=== PATIENT | male | born 1955 | race Caucasian/White ===

== ENCOUNTER 2020-05-12 20:49 | Inpatient (IN) | payer SELFPAY ==
[~2020-05-12] VITALS: Ht 170 cm; Wt 72.0 kg
[~2020-05-12 20:49] MED LIST: CHOL4PAC PO; CHONDROITIN PO; CITA20TA4 PO; GLUC100016 PO; GLUC500C2 PO; MULTI VITAMIN PO
[2020-05-12 21:09] LABS: BASOPHILS % (AUTO) 0 % (0-10); EOSINOPHILS # (AUTO) 0.2 10^3/uL (0.0-0.3); EOSINOPHILS % (AUTO) 2 % (0-10); HEMATOCRIT 45 % (40-54); HEMOGLOBIN 15.5 G/DL (13.3-17.7); LYMPHOCYTES # (AUTO) 1.5 X 10^3 (1.0-4.0); LYMPHOCYTES % (AUTO) 10 % (12-44); MEAN CORPUSCULAR HEMOGLOBIN 30 PG (25-34); MEAN CORPUSCULAR HGB CONC 35 G/DL (32-36); MEAN CORPUSCULAR VOLUME 87 FL (80-99); MEAN PLATELET VOLUME 10.4 FL (7.4-10.4); MONOCYTES # (AUTO) 0.8 X 10^3 (0.0-1.0); MONOCYTES % (AUTO) 5 % (0-12); NEUTROPHILS # (AUTO) 11.9 X 10^3 (1.8-7.8); NEUTROPHILS % (AUTO) 83 % (42-75); PLATELET COUNT 198 10^3/uL (130-400); RED CELL DISTRIBUTION WIDTH 13.5 % (10.0-14.5); WHITE BLOOD COUNT 14.4 10^3/uL (4.3-11.0)
[2020-05-12 21:28] LABS: ALBUMIN 4.4 GM/DL (3.2-4.5); CHLORIDE 105 MMOL/L (98-107); POTASSIUM 3.8 MMOL/L (3.6-5.0); SODIUM 140 MMOL/L (135-145)
[2020-05-12 21:29] LABS: CALCIUM 9.3 MG/DL (8.5-10.1)
[2020-05-12] MEDS ORDERED: FAMOTIDINE 20MG/2ML IV (PEPCID) IVP ONE (21:30)
[2020-05-12] MEDS ORDERED: fentaNYL INJECTION 100 MCG/2 ML AMP IVP ONE ×2 (21:30→23:45)
[2020-05-12] MEDS ORDERED: ONDANSETRON 4 MG/2 ML (SDV) Z0FRAN IVP ONE (21:30)
[2020-05-12 21:31] LABS: GLUCOSE 124 MG/DL (70-105); TOTAL PROTEIN 7.4 GM/DL (6.4-8.2)
[2020-05-12 21:32] LABS: BILIRUBIN,TOTAL 0.7 MG/DL (0.1-1.0); CARBON DIOXIDE 24 MMOL/L (21-32)
[2020-05-12 21:34] LABS: ALKALINE PHOSPHATASE 91 U/L (40-136); GFR ESTIMATED > 60
[2020-05-12 21:35] LABS: BUN/CREATININE RATIO 10
[2020-05-12 21:37] LABS: ALANINE AMINOTRANSFERASE 24 U/L (0-55)
[2020-05-12] MEDS ORDERED: LACTATED RINGERS 1,000 ML IV ONE (21:50)
[2020-05-12 21:53] LABS: LIPASE 76 U/L (8-78)
[2020-05-12] MEDS ORDERED: NS 100 ML (IVPB) BAG IV ONE (22:00)
[2020-05-12] MEDS ORDERED: IOHEXOL 350 MG/ML 100 ML (OMNIPAQUE 350) VIAL IV ONE (22:00)
[2020-05-12] MEDS ORDERED: HOLD METFORMIN - RECEIVED CONTRAST 20 ML VIAL IV SCH (22:00)
[2020-05-12 22:01] LABS: EOSINOPHILS % (MANUAL) 2 %; LYMPHOCYTES % (MANUAL) 14 %; MONOCYTES % (MANUAL) 5 %; NEUTROPHILS % (MANUAL) 79 %
[2020-05-12 22:02] LABS: RBC MORPH NORMAL
--- NOTE | 2020-05-12 23:00 | ED Abdominal Pain ---
General Chief Complaint: Abdominal/GI Problems Stated Complaint: ABD PAIN/VOMITING Nursing Triage Note: PATIENT STATES AFTER EATING DINNER FELT BLOATED AND THEN IMMEDIATLY VOMITTED PATIENT COMPLAINT OF ABDOMIANAL PAIN. Sepsis Screen: No Definite Risk Source of Information: Patient Exam Limitations: No Limitations History of Present Illness Date Seen by Provider: May 12, 2020 Time Seen by Provider: 20:54 Initial Comments This 65-year-old gentleman presents to the emergency room with complaints of bloating and vomiting tonight with central abdominal pain that radiates to the right lower quadrant. He denies any fever. He is moaning in distress. He has occasional trouble with constipation but reports 3 bowel movements today. Allergies and Home Medications Allergies Coded Allergies: No Known Drug Allergies (Unverified , 03/10/12) Home Medications Cholestyramine/Aspartame 4 G/Pkt Packet, 4 G PO DAILY, (Reported) Citalopram Hydrobromide 20 Mg Tablet, 20 MG PO DAILY, (Reported) Glucosamine Sulfate 500 Mg Capsule, 500 MG PO DAILY, (Reported) Glucosamine Sulfate 2KCL 1,000 Mg Tablet, 1,000 MG PO DAILY, (Reported) [Chondroitin] , 1,200 MG PO DAILY, (Reported) [Multi Vitamin] , 1 PO DAILY, (Reported) Patient Home Medication List Home Medication List Reviewed: Yes Review of Systems Review of Systems Constitutional: no symptoms reported EENTM: No Symptoms Reported Respiratory: No Symptoms Reported Cardiovascular: No Symptoms Reported Gastrointestinal: See HPI Genitourinary: No Symptoms Reported Musculoskeletal: no symptoms reported Skin: no symptoms reported Psychiatric/Neurological: No Symptoms Reported Endocrine: No Symptoms Reported Hematologic/Lymphatic: No Symptoms Reported Past Ygdrxix-Djxwhk-Sojtcc Hx Past Med/Social Hx: Reviewed Nursing Past Med/Soc Hx Patient Social History Alcohol Use: Occasionally Uses Recreational Drug Use: Yes Drug of Choice: MARIJUANA DAILY Smoking Status: Former Smoker Former Smoker, Quit: Nov 22, 2019 2nd Hand Smoke Exposure: Yes Recent Foreign Travel: No Contact w/Someone Who Travel: No Recent Infectious Disease Expo: No Physical Abuse: No Sexual Abuse: No Mistreated: No Fear: No Immunizations Up To Date Tetanus Booster (TDap): Unknown Seasonal Allergies Seasonal Allergies: No Past Medical History Surgeries: Yes Gallbladder Respiratory: No Cardiac: No Gastrointestinal: No Musculoskeletal: No (BUT HAS JOINT PAIN) Endocrine: No Cancer: No Psychosocial: No Physical Exam Vital Signs Vital Signs - First Documented 6/21/20 21:00 Temp 36.5 Pulse 72 Resp 18 B/P (MAP) 167/97 (120) Pulse Ox 95 O2 Delivery Room Air Capillary Refill : Less Than 3 Seconds Height/Weight/BMI Height: '" Weight: lbs. oz. 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, no motor/sensory deficits, alert, normal mood/affect, oriented x 3 Skin: normal color, warm/dry Progress/Results/Core Measures Results/Orders Lab Results Laboratory Tests Test 05/12/20 21:00 05/12/20 23:10 Range/Units White Blood Count 14.4 H 4.3-11.0 10^3/uL Red Blood Count 5.16 4.35-5.85 10^6/uL Hemoglobin 15.5 13.3-17.7 G/DL Hematocrit 45 40-54 % Mean Corpuscular Volume 87 80-99 FL Mean Corpuscular Hemoglobin 30 25-34 PG Mean Corpuscular Hemoglobin Concent 35 32-36 G/DL Red Cell Distribution Width 13.5 10.0-14.5 % Platelet Count 198 130-400 10^3/uL Mean Platelet Volume 10.4 7.4-10.4 FL Neutrophils (%) (Auto) 83 H 42-75 % Lymphocytes (%) (Auto) 10 L 12-44 % Monocytes (%) (Auto) 5 0-12 % Eosinophils (%) (Auto) 2 0-10 % Basophils (%) (Auto) 0 0-10 % Neutrophils # (Auto) 11.9 H 1.8-7.8 X 10^3 Lymphocytes # (Auto) 1.5 1.0-4.0 X 10^3 Monocytes # (Auto) 0.8 0.0-1.0 X 10^3 Eosinophils # (Auto) 0.2 0.0-0.3 10^3/uL Basophils # (Auto) 0.0 0.0-0.1 10^3/uL Neutrophils % (Manual) 79 % Lymphocytes % (Manual) 14 % Monocytes % (Manual) 5 % Eosinophils % (Manual) 2 % Blood Morphology Comment NORMAL Sodium Level 140 135-145 MMOL/L Potassium Level 3.8 3.6-5.0 MMOL/L Chloride Level 105 98-107 MMOL/L Carbon Dioxide Level 24 21-32 MMOL/L Anion Gap 11 5-14 MMOL/L Blood Urea Nitrogen 12 7-18 MG/DL Creatinine 1.20 0.60-1.30 MG/DL Estimat Glomerular Filtration Rate > 60 BUN/Creatinine Ratio 10 Glucose Level 124 H 70-105 MG/DL Calcium Level 9.3 8.5-10.1 MG/DL Corrected Calcium 9.0 8.5-10.1 MG/DL Total Bilirubin 0.7 0.1-1.0 MG/DL Aspartate Amino Transf (AST/SGOT) 23 5-34 U/L Alanine Aminotransferase (ALT/SGPT) 24 0-55 U/L Alkaline Phosphatase 91 40-136 U/L C-Reactive Protein High Sensitivity 0.29 0.00-0.50 MG/DL Total Protein 7.4 6.4-8.2 GM/DL Albumin 4.4 3.2-4.5 GM/DL Lipase 76 8-78 U/L Urine Color YELLOW Urine Clarity CLEAR Urine pH 6.0 5-9 Urine Specific [place] 1.015 L 1.016-1.022 Urine Protein TRACE H NEGATIVE Urine Glucose (UA) NEGATIVE NEGATIVE Urine Ketones NEGATIVE NEGATIVE Urine Nitrite NEGATIVE NEGATIVE Urine Bilirubin NEGATIVE NEGATIVE Urine Urobilinogen 0.2 < = 1.0 MG/DL Urine Leukocyte Esterase NEGATIVE NEGATIVE Urine RBC (Auto) NEGATIVE NEGATIVE Urine RBC NONE /HPF Urine WBC NONE /HPF Urine Squamous Epithelial Cells RARE /HPF Urine Crystals NONE /LPF Urine Bacteria NEGATIVE /HPF Urine Casts PRESENT /LPF Urine Hyaline Casts RARE /LPF Urine Mucus NEGATIVE /LPF Urine Culture Indicated NO My Orders Orders - JOSE CASTAÑEDA MD Ed Iv/Invasive Line Start (05/12/20 20:54) Cbc With Automated Diff (05/12/20 20:54) Comprehensive Metabolic Panel (05/12/20 20:54) Hs C Reactive Protein (05/12/20 20:54) Lipase (05/12/20 20:54) Ua Culture If Indicated (05/12/20 20:54) Manual Differential (05/12/20 21:00) Ondansetron Injection (Zofran Injectio (05/12/20 21:30) Fentanyl Injection (Sublimaze Injection (05/12/20 21:30) Famotidine Injection (Pepcid Injection) (05/12/20 21:30) Ct Abdomen/Pelvis W (05/12/20 21:50) Lactated Ringers (Lr 1000 Ml Iv Solution (05/12/20 21:50) Iohexol Injection (Omnipaque 350 Mg/Ml 1 (05/12/20 22:00) Received Contrast (Hold Metformin- Contr (05/12/20 22:00) Ns (Ivpb) (Sodium Chloride 0.9% Ivpb Bag (05/12/20 22:00) Fentanyl Injection (Sublimaze Injection (05/12/20 23:45) Medications Given in ED Current Medications Medications Dose Ordered Sig/Lc Route Start Time Stop Time Status Last Admin Dose Admin Famotidine 20 mg ONCE ONCE IVP 05/12/20 21:30 05/12/20 21:31 DC 05/12/20 21:35 20 MG Fentanyl Citrate 50 mcg ONCE ONCE IVP 05/12/20 21:30 05/12/20 21:31 DC 05/12/20 21:35 50 MCG Iohexol 100 ml ONCE ONCE IV 05/12/20 22:00 05/12/20 22:01 DC 05/12/20 22:30 85 ML Lactated Ringer's 1,000 ml @ 0 mls/hr Q0M ONCE IV 05/12/20 21:50 05/12/20 21:51 DC 05/12/20 21:53 0 MLS/HR Ondansetron HCl 8 mg ONCE ONCE IVP 05/12/20 21:30 05/12/20 21:31 DC 05/12/20 21:36 8 MG Sodium Chloride 100 ml ONCE ONCE IV 05/12/20 22:00 05/12/20 22:01 DC 05/12/20 22:30 80 ML Vital Signs/I&O 05/12/20 21:00 Temp 36.5 Pulse 72 Resp 18 B/P (MAP) 167/97 (120) Pulse Ox 95 O2 Delivery Room Air Blood Pressure Mean: 120 Progress Progress Note : Progress Note Patient was seen and evaluated. He was treated with IV fluids, fentanyl, Zofran, and Pepcid. Labs were reviewed and were unremarkable except for leukocytosis. CT was then obtained revealing a phlegmonous pancreas. However, this did not correlate with either his CRP or lipase. Patient's clinical presentation and CT findings warrant observation. Patient is agreeable to stay for observation. Fentanyl dose was repeated. Diagnostic Imaging Diagonstic Imaging: CT Plain Films/CT/US/NM/MRI: abdomen, pelvis Comments CT abdomen and pelvis viewed by me and [facility] report reviewed. There were inflammatory changes around the pancreas suggestive of phlegmonous pancreas. Departure Communication (Admissions) Time/Spoke to Admitting Phy: 23:20 Dr. Mancera Impression Primary Impression: Abdominal pain Qualified Codes: R10.33 - Periumbilical pain Additional Impression: Nausea and vomiting Qualified Codes: R11.2 - Nausea with vomiting, unspecified Disposition: ADMITTED INPATIENT Condition: Improved Admissions Decision to Admit Reason: Admit from ER (General) Decision to Admit/Date: May 13, 2020 Time/Decision to Admit Time: 23:20 Departure-Patient Inst. Referrals: NICOLE MOSER MD (PCP/Family) Primary Care Physician JOSE CASTAÑEDA MD May 12, 2020 23:00
[2020-05-12 23:18] LABS: BILIRUBIN,URINE NEGATIVE (NEGATIVE); CLARITY,URINE CLEAR; COLOR,URINE YELLOW; GLUCOSE, URINE (UA) NEGATIVE (NEGATIVE); KETONES,URINE NEGATIVE (NEGATIVE); LEUKOCYTE ESTERASE ,URINE NEGATIVE (NEGATIVE); NITRITE,URINE NEGATIVE (NEGATIVE); PROTEIN,URINE TRACE (NEGATIVE)
[2020-05-12 23:27] LABS: BACTERIA,URINE NEGATIVE /HPF; HYALINE CASTS, URINE RARE /LPF; SQUAMOUS EPITHELIAL CELL,UR RARE /HPF
--- OUTSIDE RECORDS SUMMARY | 2020-05-12 23:59 | XMS REPORT | Continuity of Care Document ---
Demographics Preferred Language Unknown Marital Status Unknown Caodaism Affiliation Unknown Race Unknown Ethnic Group Unknown Author Organization Unknown Address Unknown Phone Unavailable Allergies There is no data. Medications There is no data. Problems There is no data. Procedures There is no data. Results Test Result Range Complete blood count (CBC) with automate d white blood cell (WBC) differential - 05/12/20 21:00 Blood leukocytes automated count (number/volume) 14.4 10*3/uL 4.3-11.0 Blood erythrocytes automated count (number/volume) 5.16 10*6/uL 4.35-5.85 Venous blood hemoglobin measurement (mass/volume) 15.5 g/dL 13.3-17.7 Blood hematocrit (volume fraction) 45 % 40-54 Automated erythrocyte mean corpuscular volume 87 [ foz_us] 80-99 Automated erythrocyte mean corpuscular h emoglobin (mass per erythrocyte) 30 pg 25-34 Automated erythrocyte mean corpuscular h emoglobin concentration measurement (mass/volume) 35 g/dL 32-36 Automated erythrocyte distribution width ratio 13. 5 % 10.0- 14.5 Automated blood platelet count (count/volume) 198 10*3/uL 130-400 Automated blood platelet mean volume measurement 10.4 [foz_us] 7.4-10.4 Automated blood neutrophils/100 leukocytes 83 % 42-75 Automated blood lymphocytes/100 leukocytes 10 % 12-44 Blood monocytes/100 leukocytes 5 % 0-12 Automated blood eosinophils/100 leukocytes 2 % 0-10 Automated blood basophils/100 leukocytes 0 % 0-10 Blood neutrophils automated count (number/volume) 11.9 10*3 1.8-7.8 Blood lymphocytes automated count (number/volume) 1.5 10*3 1.0-4.0 Blood monocytes automated count (number/volume) 0. 8 10*3 0.0-1.0 Automated eosinophil count 0.2 10*3/uL 0 .0-0.3 Automated blood basophil count (count/volume) 0.0 10*3/uL 0.0-0.1 Comprehensive metabolic panel - 05/12/20 21:00 Serum or plasma sodium measurement (moles/volume) 140 mmol/L 135-145 Serum or plasma potassium measurement (moles/volume) 3.8 mmol/L 3.6-5.0 Serum or plasma chloride measurement (moles/volume) 105 mmol/L 98-107 Carbon dioxide 24 mmol/L 21-32 Serum or plasma anion gap determination (moles/volume) 11 mmol/L 5-14 Serum or plasma urea nitrogen measurement (mass/volume ) 12 mg/dL 7-18 Serum or plasma creatinine measurement (mass/volume) 1.20 mg/dL 0.60-1.30 Serum or plasma urea nitrogen/creatinine mass ratio 10 NRG Serum or plasma creatinine measurement w ith calculation of estimated glomerular filtration rate > NRG Serum or plasma glucose measurement (mass/volume) 124 mg/dL 70-105 Serum or plasma calcium measurement (mass/volume) 9.3 mg/dL 8.5-10.1 Serum or plasma total bilirubin measurement (mass/volu me) 0.7 mg/dL 0.1-1.0 Serum or plasma alkaline phosphatase jim surement (enzymatic activity/volume) 91 U/L 40-136 Serum or plasma aspartate aminotransfera se measurement (enzymatic activity/volume) 23 U/L 5-34 Serum or plasma alanine aminotransferase measurement (enzymatic activity/volume) 24 U/L 0-55 Serum or plasma protein measurement (mass/volume) 7.4 g/dL 6.4-8.2 Serum or plasma albumin measurement (mass/volume) 4.4 g/dL 3.2-4.5 CALCIUM CORRECTED 9.0 mg/dL 8.5-10.1 Lipase - 05/12/20 21:00 Lipase 76 U/L 8-78 Serum or plasma C reactive protein measu rement (mass/volume) - 05/12/20 21:00 Serum or plasma C reactive protein measurement (mass/v olume) 0.29 mg/dL 0.00-0.50 Manual absolute plasma cell count - 04/23 12/11 21:00 Blood monocytes/100 leukocytes 5 % NRG Manual blood segmented neutrophils/100 leukocytes 79 % NRG Manual blood lymphocytes/100 leukocytes 14 % NRG Manual eosinophils/100 leukocytes in nose 2 % NRG Blood erythrocyte morphology finding identification NORMAL NRG Complete urinalysis with reflex to cultu re - 05/12/20 23:10 Urine color determination YELLOW NRG Urine clarity determination CLEAR NR G Urine pH measurement by test strip 6.0 5-9 Specific gravity of urine by test strip 1.015 1.016-1.022 Urine protein assay by test strip, semi-quantitative TRACE NEGATIVE Urine glucose detection by automated test strip NE GATIVE NEGATIVE Erythrocytes detection in urine sediment by light micr oscopy NEGATIVE NEGATIVE Urine ketones detection by automated test strip NE GATIVE NEGATIVE Urine nitrite detection by test strip NEGATIVE NEGATIVE Urine total bilirubin detection by test strip NEGA TIVE NEGATIVE Urine urobilinogen measurement by automated test strip (mass/volume) 0.2 mg/dL < = 1.0 Urine leukocyte esterase detection by dipstick NEG ATIVE NEGATIVE Automated urine sediment erythrocyte cou nt by microscopy (number/high power field) NONE NRG Automated urine sediment leukocyte count by microscopy (number/high power field) NONE NRG Bacteria detection in urine sediment by light microsco py NEGATIVE NRG Squamous epithelial cells detection in u rine sediment by light microscopy RARE NRG Crystals detection in urine sediment by light microsco py NONE NRG Casts detection in urine sediment by light microscopy PRESENT NRG Mucus detection in urine sediment by light microscopy NEGATIVE NRG Complete urinalysis with reflex to culture NO NRG Hyaline casts detection in urine sediment by light carl roscopy RARE NRG Encounters ACCT No. Visit Date/Time Discharge Status Pt. Type Provider Facility Loc./Unit Complaint [id number] 05/12/2020 21:14:00 Document Registration
[2020-05-13] VITALS (8 sets, daily range): BP systolic 129–162; BP diastolic 62–91
--- NOTE | 2020-05-13 00:52 | NUR ---
Joann Uribe admitted to room 410-1, with an admitting diagnosis of N/V, ABDOMINAL PAIN, LEUKOCYTOSIS , on 05/12/20 from ED via WHEELCHAIR , accompanied by STAFF.JOANN URIBE introduced to surroundings, call light, bed controls, phone, TV, temperature control, lights, meal times, smoking policy, visitor policy, side rail policy, bathrooms and showers. Patient Rights given to patient in the handbook.JOANN URIBE verbalizes understanding that [facility] is not responsible for the loss or damage to any personal effects or valuables that are kept in the patients posession during their hospitalization. JOANN URIBE verbalizes understanding of Interdisciplinary Patient Education. Patient and/or family were informed about the Rapid Response Team and its purpose.
[2020-05-13] MEDS: LACTATED RINGERS 1,000 ML IV SCH ×3 (02:14→18:30)
[2020-05-13] MEDS: fentaNYL INJECTION 100 MCG/2 ML AMP IV PRN ×8 (02:14→21:28)
[2020-05-13 05:23] LABS: BASOPHILS % (AUTO) 0 % (0-10); EOSINOPHILS % (AUTO) 0 % (0-10); HEMATOCRIT 42 % (40-54); HEMOGLOBIN 14.5 G/DL (13.3-17.7); LYMPHOCYTES # (AUTO) 0.6 X 10^3 (1.0-4.0); LYMPHOCYTES % (AUTO) 5 % (12-44); MEAN CORPUSCULAR HEMOGLOBIN 30 PG (25-34); MEAN CORPUSCULAR HGB CONC 35 G/DL (32-36); MEAN CORPUSCULAR VOLUME 87 FL (80-99); MEAN PLATELET VOLUME 10.6 FL (7.4-10.4); MONOCYTES # (AUTO) 0.5 X 10^3 (0.0-1.0); MONOCYTES % (AUTO) 4 % (0-12); NEUTROPHILS # (AUTO) 11.9 X 10^3 (1.8-7.8); NEUTROPHILS % (AUTO) 92 % (42-75); PLATELET COUNT 169 10^3/uL (130-400); RED CELL DISTRIBUTION WIDTH 13.4 % (10.0-14.5)
[2020-05-13 05:33] LABS: ALBUMIN 3.8 GM/DL (3.2-4.5); CHLORIDE 106 MMOL/L (98-107); POTASSIUM 4.2 MMOL/L (3.6-5.0); SODIUM 139 MMOL/L (135-145)
[2020-05-13 05:34] LABS: CALCIUM 8.6 MG/DL (8.5-10.1)
[2020-05-13 05:35] LABS: GLUCOSE 127 MG/DL (70-105); TOTAL PROTEIN 6.5 GM/DL (6.4-8.2)
[2020-05-13 05:36] LABS: CARBON DIOXIDE 23 MMOL/L (21-32)
[2020-05-13 05:37] LABS: BILIRUBIN,TOTAL 0.7 MG/DL (0.1-1.0)
[2020-05-13 05:38] LABS: ALKALINE PHOSPHATASE 80 U/L (40-136)
[2020-05-13 05:39] LABS: CREATININE SERUM 1.03 MG/DL (0.60-1.30); GFR ESTIMATED > 60
[2020-05-13 05:40] LABS: BUN/CREATININE RATIO 13
[2020-05-13 05:42] LABS: ALANINE AMINOTRANSFERASE 21 U/L (0-55)
[2020-05-13 06:54] LABS: LIPASE 1148 U/L (8-78)
--- NOTE | 2020-05-13 07:23 | Diagnostic Imaging Report ---
PROCEDURE: CT abdomen and pelvis with contrast. TECHNIQUE: Multiple contiguous axial images were obtained through the abdomen and pelvis after administration of intravenous contrast. Auto Exposure Controls were utilized during the CT exam to meet ALARA standards for radiation dose reduction. INDICATION: Abdominal pain and vomiting. COMPARISON: None available. FINDINGS: Emphysematous changes are demonstrated in both lung bases. Mild scarring and fibrotic changes are also demonstrated in the lung bases. The visualized heart is normal in size. Incidental note is made of a cyst in the posterior right hepatic lobe superiorly. The liver is otherwise unremarkable. The gallbladder is surgically absent. There is mild prominence of the common bile duct, physiologic postcholecystectomy. The spleen and adrenal glands are unremarkable. There is marked peripancreatic inflammatory change. There is no pancreatic ductal dilatation. No focal peripancreatic collection is demonstrated. Surrounding fluid related to the pancreas, extends inferiorly along the paracolic gutters and Gerota's fascia. No focal/organized or rim-enhancing collection is demonstrated. The kidneys are symmetric in size and demonstrate normal enhancement, without renal calculus, hydronephrosis, or suspicious mass. There is no abnormality in the visualized ureters. There is a small hiatal hernia. There is mild inflammatory change involving the 2nd portion of the duodenum, likely reactive in nature to the pancreatic process. Otherwise, no bowel wall thickening is demonstrated. There is no evidence of obstruction. There is marked colonic diverticulosis, without evidence of diverticulitis. There is no pneumoperitoneum. No lymphadenopathy is demonstrated. The bladder and prostate gland are unremarkable. There is moderate calcified and noncalcified atherosclerotic plaque involving the abdominal aorta, without aneurysmal dilatation. There is no evidence of venous thrombosis. The abdominal wall is unremarkable. Degenerative changes involve the spine. Incidental note is made of bilateral pars interarticularis defect of the L5 vertebral body, with associated grade 1 spondylolisthesis of L5 on S1. No acute osseous abnormality is identified. IMPRESSION: Acute pancreatitis, as detailed above. There is associated inflammatory change and fluid, without focal collection or findings to suggest pancreatic necrosis. There is also associated mild inflammatory change involving the 2nd portion the duodenum, which is presumably reactive in nature. Chronic and incidental findings are detailed above. Findings are in agreement with initial teleradiology report. Dictated by: Dictated on workstation # [id number]
[2020-05-13] MEDS: ONDANSETRON 4 MG/2 ML (SDV) Z0FRAN IV PRN ×2 (08:41→13:23)
[2020-05-13] MEDS: FAMOTIDINE 20MG/2ML IV (PEPCID) IV SCH ×2 (09:07→21:28)
[2020-05-13 09:11] LABS: TRIGLYCERIDES 102 MG/DL (<150); VLDL CHOLESTEROL 20 MG/DL (5-40)
[2020-05-13 09:16] LABS: CHOLESTEROL 195 MG/DL (< 200); HDL CHOLESTEROL 33 MG/DL (40-60)
[2020-05-13] MEDS ORDERED: NAPR220T66 PO (09:30)
--- NOTE | 2020-05-13 09:44 | NUR ---
SPOKE WITH PT TO COMPLETE THE MED REC PT DENIES TAKING ANY PRESCRIPTION MEDICATION OTC MEDS: DIEGO BERUMEN
--- NOTE | 2020-05-13 10:46 | History & Physical-Hospitalist ---
History of Present Illness HPI/Chief Complaint Natanael Uribe is a 65-year-old male with no known past medical history who presented with abdominal pain. He reports that the pain started yesterday and is worse in the epigastric region. Pain the radiates throughout his abdomen. He reports subjective fevers and chills. He also reports diaphoresis. He reports nausea. He denies any chest pain. He denies any trouble breathing or cough. He denies any vomiting. He has had some diarrhea. He denies any dysuria. He denies any rash. He is a nonsmoker. He drinks alcohol occasionally and only a very small amount. He does smoke marijuana. He denies any recent abdominal trauma. He had his gallbladder removed almost 20 years ago. He says he had a similar episode with pain in his lower abdomen a couple months ago which lasted about 2 weeks. He did not seek medical attention at that time. Source: patient Exam Limitations: no limitations Date Seen 05/13/20 Time Seen by a Provider: 08:45 Attending Physician Lillian Mancera MD PCP Xiang Najera MD Referring Physician Date of Admission May 12, 2020 at 23:42 Home Medications & Allergies Home Medications Reviewed patient Home Medication Reconciliation performed by pharmacy medication reconciliations accounts payable technician and/or nursing. Patients Allergies have been reviewed. Allergies Allergies Coded Allergies No Known Drug Allergies (Unverified03/10/12) Past Pjknfko-Jfbrbi-Eqmiua Hx Past Med/Social Hx: Reviewed Nursing Past Med/Soc Hx Patient Social History Alcohol Use: Occasionally Uses Recreational Drug Use: Yes Drug of Choice: MARIJUANA DAILY Smoking Status: Former Smoker Former Smoker, Quit: Nov 22, 2019 2nd Hand Smoke Exposure: Yes Recent Foreign Travel: No Contact w/other who traveled: No Recent Infectious Disease Expo: No Immunizations Up To Date Tetanus Booster (TDap): Unknown Seasonal Allergies Seasonal Allergies: No Past Medical History Surgeries: Gallbladder Review of Systems Constitutional: chills, diaphoresis, fever EENTM: no symptoms reported Respiratory: no symptoms reported Cardiovascular: no symptoms reported Gastrointestinal: abdominal pain, diarrhea, loss of appetite, nausea Genitourinary: no symptoms reported Musculoskeletal: no symptoms reported Skin: no symptoms reported Psychiatric/Neurological: No Symptoms Reported Physical Exam Physical Exam Vital Signs Vital Signs - First Documented 05/12/20 21:00 Temp 36.5 Pulse 72 Resp 18 B/P (MAP) 167/97 (120) Pulse Ox 95 O2 Delivery Room Air Capillary Refill : Less Than 3 Seconds Height, Weight, BMI Height: '" Weight: lbs. oz. kg; 24.91 BMI Method: General Appearance: No Apparent Distress, WD/WN HEENT: PERRL/EOMI, Pharynx Normal Neck: Normal Inspection, Supple Respiratory: Lungs Clear, Normal Breath Sounds, No Respiratory Distress Cardiovascular: Regular Rate, Rhythm, No Edema, No Murmur, Normal Peripheral Pulses Gastrointestinal: Normal Bowel Sounds, Soft; No Distended, No Guarding; Tenderness Extremity: Normal Inspection, Non Tender, No Pedal Edema Neurologic/Psychiatric: Alert, Oriented x3, No Motor/Sensory Deficits, Normal Mood/Affect Skin: Normal Color, Warm/Dry Results Results/Procedures Labs Laboratory Tests 05/12/20 21:00 05/13/20 05:00 Patient resulted labs reviewed. Imaging: Reviewed Imaging Report Assessment/Plan Admission Diagnosis Acute pancreatitis Admission Status: Inpatient Order (span 2 midnights) Reason for Inpatient Admission: Acute pancreatitis requiring IV fluids and pain medication Assessment and Plan Acute pancreatitis Epigastric abdominal pain, CT consistent with pancreatitis, elevated lipase Increase IV fluids to LR 150 mL per hour Increase fentanyl to improve pain control Continue nothing by mouth Check triglyceride level LFTs normal, repeat tomorrow DVT prophylaxis: Lovenox Diagnosis/Problems Diagnosis/Problems (1) Acute pancreatitis Status: Acute Qualifiers: Pancreatitis type: unspecified pancreatitis type Acute pancreatitis complication: no infection or necrosis Qualified Codes: K85.90 - Acute pancreatitis without necrosis or infection, unspecified Clinical Quality Measures DVT/VTE Risk/Contraindication: Risk Factor Score Per Nursin RFS Level Per Nursing on Admit: 2=Moderate KAN GUADARRAMA MD May 13, 2020 10:46
[2020-05-13] MEDS ORDERED: CATHETER FLUSH 10 ML SYR IV PRN (13:15)
[2020-05-13] MEDS: ENOXAPARIN 40 MG/0.4 ML (LOVENOX) SYR SC SCH (13:24)
[2020-05-14] MEDS: fentaNYL INJECTION 100 MCG/2 ML AMP IV PRN ×11 (00:08→22:29)
[2020-05-14] MEDS: LACTATED RINGERS 1,000 ML IV SCH ×5 (01:00→21:50)
[2020-05-14 05:54] LABS: BASOPHILS % (AUTO) 0 % (0-10); EOSINOPHILS % (AUTO) 0 % (0-10); HEMATOCRIT 39 % (40-54); HEMOGLOBIN 13.3 G/DL (13.3-17.7); LYMPHOCYTES # (AUTO) 0.9 X 10^3 (1.0-4.0); LYMPHOCYTES % (AUTO) 6 % (12-44); MEAN CORPUSCULAR HEMOGLOBIN 30 PG (25-34); MEAN CORPUSCULAR HGB CONC 34 G/DL (32-36); MEAN CORPUSCULAR VOLUME 88 FL (80-99); MEAN PLATELET VOLUME 11.2 FL (7.4-10.4); MONOCYTES # (AUTO) 0.8 X 10^3 (0.0-1.0); MONOCYTES % (AUTO) 5 % (0-12); NEUTROPHILS % (AUTO) 90 % (42-75); PLATELET COUNT 154 10^3/uL (130-400); RED CELL DISTRIBUTION WIDTH 13.8 % (10.0-14.5); WHITE BLOOD COUNT 16.8 10^3/uL (4.3-11.0)
[2020-05-14 06:09] LABS: ALBUMIN 3.4 GM/DL (3.2-4.5); CHLORIDE 106 MMOL/L (98-107); POTASSIUM 3.7 MMOL/L (3.6-5.0); SODIUM 139 MMOL/L (135-145)
[2020-05-14 06:10] LABS: CALCIUM 8.1 MG/DL (8.5-10.1)
[2020-05-14 06:11] LABS: GLUCOSE 95 MG/DL (70-105); TOTAL PROTEIN 5.9 GM/DL (6.4-8.2)
[2020-05-14 06:13] LABS: BILIRUBIN,TOTAL 0.9 MG/DL (0.1-1.0); CARBON DIOXIDE 23 MMOL/L (21-32)
[2020-05-14 06:15] LABS: ALKALINE PHOSPHATASE 68 U/L (40-136); CREATININE SERUM 0.86 MG/DL (0.60-1.30); GFR ESTIMATED > 60
[2020-05-14 06:16] LABS: BUN/CREATININE RATIO 15
[2020-05-14 06:18] LABS: ALANINE AMINOTRANSFERASE 19 U/L (0-55)
[2020-05-14] MEDS: FAMOTIDINE 20MG/2ML IV (PEPCID) IV SCH ×2 (07:55→20:28)
[2020-05-14 08:00] VITALS: BP 154/82
--- NOTE | 2020-05-14 11:58 | Progress Note - Hospitalist ---
Subjective HPI/CC On Admission Date Seen by Provider: May 14, 2020 Time Seen by Provider: 09:05 Natanael Uribe is a 65-year-old male with no known past medical history who presented with abdominal pain. He reports that the pain started yesterday and is worse in the epigastric region. Pain the radiates throughout his abdomen. He reports subjective fevers and chills. He also reports diaphoresis. He reports nausea. He denies any chest pain. He denies any trouble breathing or cough. He denies any vomiting. He has had some diarrhea. He denies any dysuria. He denies any rash. He is a nonsmoker. He drinks alcohol occasio anneliese and only a very small amount. He does smoke marijuana. He denies any recent abdominal trauma. He had his gallbladder removed almost 20 years ago. He says he had a similar episode with pain in his lower abdomen a couple months ago which lasted about 2 weeks. He did not seek medical attention at that time. Subjective/Events-last exam He reports continued abdominal pain. He says he did not sleep well. He said he was requesting his medicine every 2 hours. He said it wore off after about an hour and a half. He is is having some nausea but no vomiting. He denies any fevers. He denies any shortness of breath. He denies any chest pain. He does not have an appetite. Objective Exam Vital Signs Vital Signs Date Time Temp Pulse Resp B/P (MAP) Pulse Ox O2 Delivery O2 Flow Rate FiO2 05/14/20 08:00 94 Room Air 05/14/20 08:00 36.9 73 20 154/82 (106) Capillary Refill : Less Than 3 SecondsLess Than 3 Seconds General Appearance: No Apparent Distress, WD/WN Neck: Normal Inspection, Supple Respiratory: Lungs Clear, Normal Breath Sounds, No Respiratory Distress Cardiovascular: Regular Rate, Rhythm, No Edema, No Murmur Gastrointestinal: Normal Bowel Sounds, Non Tender, Soft Extremity: Normal Inspection, Non Tender, No Pedal Edema Neurologic/Psychiatric: Alert, Oriented x3, No Motor/Sensory Deficits, Normal Mood/Affect Skin: Normal Color, Warm/Dry Results/Procedures Lab Laboratory Tests 05/14/20 05:15 Patient resulted labs reviewed. Imaging: Reviewed Imaging Report Assessment/Plan Assessment and Plan Assess & Plan/Chief Complaint Acute pancreatitis Epigastric abdominal pain, CT consistent with pancreatitis, elevated lipase Triglycerides normal, LFTs remain normal Continue fluids Continue pain regimen Continue nothing by mouth Consider clear liquids tomorrow if pain control improved Acute kidney injury Creatinine 1.2 on arrival, improved to 0.86 today Continue IV fluids DVT prophylaxis: Lovenox Diagnosis/Problems Diagnosis/Problems (1) Acute pancreatitis Status: Acute Qualifiers: Pancreatitis type: unspecified pancreatitis type Acute pancreatitis complication: no infection or necrosis Qualified Codes: K85.90 - Acute pancreatitis without necrosis or infection, unspecified (2) GRACIELA (acute kidney injury) Status: Acute Clinical Quality Measures DVT/VTE Risk/Contraindication: Risk Factor Score Per Nursin RFS Level Per Nursing on Admit: 2=Moderate KAN GUADARRAMA MD May 14, 2020 11:58
[2020-05-14] MEDS: ENOXAPARIN 40 MG/0.4 ML (LOVENOX) SYR SC SCH (12:14)
[2020-05-14 16:00] VITALS: BP 151/80
[2020-05-15 00:25] VITALS: BP 153/78
[2020-05-15] MEDS: fentaNYL INJECTION 100 MCG/2 ML AMP IV PRN ×5 (00:29→08:34)
[2020-05-15] MEDS: LACTATED RINGERS 1,000 ML IV SCH ×3 (04:32→23:11)
[2020-05-15 05:39] LABS: BASOPHILS % (AUTO) 0 % (0-10); EOSINOPHILS % (AUTO) 0 % (0-10); HEMATOCRIT 36 % (40-54); HEMOGLOBIN 12.5 G/DL (13.3-17.7); LYMPHOCYTES % (AUTO) 7 % (12-44); MEAN CORPUSCULAR HEMOGLOBIN 31 PG (25-34); MEAN CORPUSCULAR HGB CONC 35 G/DL (32-36); MEAN CORPUSCULAR VOLUME 88 FL (80-99); MEAN PLATELET VOLUME 11.3 FL (7.4-10.4); MONOCYTES % (AUTO) 7 % (0-12); NEUTROPHILS # (AUTO) 12.1 X 10^3 (1.8-7.8); NEUTROPHILS % (AUTO) 86 % (42-75); PLATELET COUNT 135 10^3/uL (130-400); RED CELL DISTRIBUTION WIDTH 13.2 % (10.0-14.5); WHITE BLOOD COUNT 14.1 10^3/uL (4.3-11.0)
[2020-05-15 05:49] LABS: CHLORIDE 105 MMOL/L (98-107); POTASSIUM 3.7 MMOL/L (3.6-5.0)
[2020-05-15 05:50] LABS: SODIUM 136 MMOL/L (135-145)
[2020-05-15 05:51] LABS: CALCIUM 8.1 MG/DL (8.5-10.1); GLUCOSE 86 MG/DL (70-105)
[2020-05-15 05:53] LABS: CARBON DIOXIDE 23 MMOL/L (21-32)
[2020-05-15 05:55] LABS: CREATININE SERUM 0.81 MG/DL (0.60-1.30); GFR ESTIMATED > 60
[2020-05-15 05:56] LABS: BUN/CREATININE RATIO 15
[2020-05-15 08:00] VITALS: BP 150/70
[2020-05-15] MEDS: FAMOTIDINE 20MG/2ML IV (PEPCID) IV SCH ×2 (08:34→21:00)
[2020-05-15] MEDS ORDERED: ANTACID SUSP 30 ML UDC (MYLANTA) PO PRN (09:45)
[2020-05-15] MEDS ORDERED: ONDANSETRON 4 MG (ZOFRAN) ORAL DISSOLVE TAB PO PRN (09:45)
[2020-05-15] MEDS ORDERED: ONDANSETRON 4 MG/2 ML (SDV) Z0FRAN IV PRN (09:45)
[2020-05-15] MEDS ORDERED: MELATONIN 3 MG TABLET PO PRN (09:45)
[2020-05-15] MEDS ORDERED: polyethylene glycoL POWDER 17 GM (MIRALAX) PACK PO PRN (09:45)
[2020-05-15] MEDS ORDERED: ACETAMINOPHEN 325 MG TABLET PO PRN (09:45)
[2020-05-15] MEDS ORDERED: diphenhydrAMINE 25 MG TAB (BENADRYL) PO PRN (09:45)
--- NOTE | 2020-05-15 10:19 | Progress Note - Hospitalist ---
Subjective HPI/CC On Admission Date Seen by Provider: May 15, 2020 Time Seen by Provider: 09:15 Natanael Uribe is a 65-year-old male with no known past medical history who presented with abdominal pain. He reports that the pain started yesterday and is worse in the epigastric region. Pain the radiates throughout his abdomen. He reports subjective fevers and chills. He also reports diaphoresis. He reports nausea. He denies any chest pain. He denies any trouble breathing or cough. He denies any vomiting. He has had some diarrhea. He denies any dysuria. He denies any rash. He is a nonsmoker. He drinks alcohol occasio anneliese and only a very small amount. He does smoke marijuana. He denies any recent abdominal trauma. He had his gallbladder removed almost 20 years ago. He says he had a similar episode with pain in his lower abdomen a couple months ago which lasted about 2 weeks. He did not seek medical attention at that time. Subjective/Events-last exam He reports that his pain is improved. He denies any more nausea and no vomiting. He denies any fevers or chills. He denies any trouble breathing or chest pain. He does not have an appetite. Objective Exam Vital Signs Vital Signs Date Time Temp Pulse Resp B/P (MAP) Pulse Ox O2 Delivery O2 Flow Rate FiO2 05/15/20 08:00 37.4 81 20 150/70 (96) 94 Room Air Capillary Refill : Less Than 3 SecondsLess Than 3 Seconds General Appearance: No Apparent Distress, WD/WN Respiratory: Lungs Clear, Normal Breath Sounds, No Respiratory Distress Cardiovascular: Regular Rate, Rhythm, No Edema, No Murmur Gastrointestinal: Normal Bowel Sounds, Soft, Tenderness Extremity: Normal Inspection, Non Tender, No Pedal Edema Neurologic/Psychiatric: Alert, Oriented x3, No Motor/Sensory Deficits, Normal Mood/Affect Skin: Normal Color, Warm/Dry Results/Procedures Lab Laboratory Tests 05/15/20 05:15 Patient resulted labs reviewed. Imaging: Reviewed Imaging Report Assessment/Plan Assessment and Plan Assess & Plan/Chief Complaint Acute pancreatitis Epigastric abdominal pain, CT consistent with pancreatitis, elevated lipase Continue fluids, decrease rate Transition to oral pain regimen with IV for breakthrough Advance diet to clear liquids DVT prophylaxis: Lovenox Acute kidney injury, resolved Diagnosis/Problems Diagnosis/Problems (1) Acute pancreatitis Status: Acute Qualifiers: Pancreatitis type: unspecified pancreatitis type Acute pancreatitis complication: no infection or necrosis Qualified Codes: K85.90 - Acute pancreatitis without necrosis or infection, unspecified (2) GRACIELA (acute kidney injury) Status: Resolved Resolution Date/Time: 05/15/20 @ 10:14 Clinical Quality Measures DVT/VTE Risk/Contraindication: Risk Factor Score Per Nursin RFS Level Per Nursing on Admit: 2=Moderate KAN GUADARRAMA MD May 15, 2020 10:19
[2020-05-15] MEDS ORDERED: fentaNYL INJECTION 100 MCG/2 ML AMP IV PRN (10:30)
--- NOTE | 2020-05-15 11:12 | NUR ---
RD ASSESSMENT PMHx: unknown PMH Current: acute pancreatitis PT INTERACTION: Pt was awake and pleasant during nutrition assessment. Pt states current appetite is "zero," and had been since admit. Note is NPO x2d, per chart review. Pt states following a regular diet at home, and has no issues with chewing/swallowing food. Pt states recent issues with nausea and vomiting. Pt states last BM was "before I got here." Note pt not currently on bowel regimen per chart review. Pt states no recent wt changes. Note unable to determine recent wt hx, per chart review. ABNORMAL NUTRITION-RELATED LAB VALUES LOW: Ca 8.1; Pro 5.9; HDL 33 HIGH: LDL 153; lipase 1148 Est. kcal needs: 1614-3532 kcal | 25-30 kcal/kg Est. Pro needs: 58-72 g Pro | 0.8-1.0 g Pro/kg PES STATEMENT: Inadequate oral intake (NI-2.1) related to nausea | vomiting | loss of appetite | NPO status as evidenced by pt interview | chart review INTERVENTION: Note pt is currently NPO, and has been for 2d. Would recommend diet advancement when medically able and as tolerated. Will continue to follow and reassess as pt needs, intake, and status change. MONITOR/EVALUATE: PO Intake; Plan of Care; Hydration Status; Weight Status; Lab Values Gabriella Antunez, , RD, LD
[2020-05-15] MEDS: ENOXAPARIN 40 MG/0.4 ML (LOVENOX) SYR SC SCH (13:21)
--- NOTE | 2020-05-15 13:40 | NUR ---
Pastoral care visit.
[2020-05-15 15:44] VITALS: BP 143/66
[2020-05-15 19:41] VITALS: BP 144/61
[2020-05-15] MEDS: DOCUSATE SODIUM 100 MG (COLACE) CAP PO SCH (21:02)
[2020-05-15] MEDS: SENNOSIDES 8.6 MG (SENOKOT) TAB PO SCH (21:02)
[2020-05-15 23:28] VITALS: BP 148/83
[2020-05-16 04:54] VITALS: BP 165/80
[2020-05-16] MEDS: LACTATED RINGERS 1,000 ML IV SCH (07:59)
[2020-05-16] MEDS: FAMOTIDINE 20MG/2ML IV (PEPCID) IV SCH (07:59)
[2020-05-16] MEDS: SENNOSIDES 8.6 MG (SENOKOT) TAB PO SCH (08:00)
[2020-05-16] MEDS: DOCUSATE SODIUM 100 MG (COLACE) CAP PO SCH (08:00)
[2020-05-16 12:00] VITALS: BP 144/66
[2020-05-16] MEDS: ENOXAPARIN 40 MG/0.4 ML (LOVENOX) SYR SC SCH (12:16)
[2020-05-16] MEDS ORDERED: OXYC5CAP18 PO (13:22)
[2020-05-16] MEDS ORDERED: ATOR40TA PO (13:22)
--- NOTE | 2020-05-16 13:31 | Discharge Summary ---
Discharge Summary Hospital Course Was the Problem List Reviewed?: Yes Problems/Dx: (1) Acute pancreatitis Status: Acute Qualifiers: Qualified Codes: K85.90 - Acute pancreatitis without necrosis or infection, unspecified (2) GRACIELA (acute kidney injury) Status: Resolved Hospital Course Date of Admission: May 13, 2020 at 10:36 Admission Diagnosis : Acute pancreatitis Family Physician/Provider: Xiang Najera MD Date of Discharge: 05/16/20 Discharge Diagnosis: Acute pancreatitis Hospital Course: Natanael Uribe is a 65-year-old male who presented with epigastric abdominal pain and was admitted with acute pancreatitis. He was given IV fluids, pain me dication, and nothing by mouth. His symptoms slowly improved over 2-3 days. He was started on a clear liquid diet which was advanced to a general diet and he tolerated this well. He was discharged with a small prescription of oxycodone for pain. He was also started on Lipitor for hyperlipidemia. His course was complicated by an acute kidney injury which resolved with IV fluid resuscitation. He should follow-up with his primary care physician in about a week. Labs and Pending Lab Test: Home Meds Active Oxycodone HCl 5 Mg Capsule 5 Mg PO Q4H PRN 7 Days Lipitor (Atorvastatin Calcium) 40 Mg Tablet 40 Mg PO HS 30 Days Reported Aleve (Naproxen Sodium) 220 Mg Tablet 440 Mg PO Q8H PRN Assessment/Pt Instructions Take medications as prescribed. You're being started on any new cholesterol medicine, Lipitor. Stop taking the medication and talk to your physician if he began having muscle aches or pains. You're also being given a small prescription of pain medicine. Follow-up with your primary care physician. Discharge Planning: <30 minutes discharge planning Discharge Instructions Discharge Diet: No Restrictions Activity as Tolerated: Yes Discharge Physical Examination Vital Signs Vital Signs Date Time Temp Pulse Resp B/P (MAP) Pulse Ox O2 Delivery O2 Flow Rate FiO2 05/16/20 12:00 36.3 82 18 144/66 (92) 94 Room Air General Appearance: No Apparent Distress, WD/WN Respiratory: Lungs Clear, Normal Breath Sounds, No Respiratory Distress Cardiovascular: Regular Rate, Rhythm, No Edema, No Murmur Gastrointestinal: Normal Bowel Sounds, Non Tender, Soft Extremity: Normal Inspection, Non Tender, No Pedal Edema Skin: Normal Color, Warm/Dry Neurologic/Psychiatric: Alert, Oriented x3, No Motor/Sensory Deficits, Normal Mood/Affect Allergies: Coded Allergies: No Known Drug Allergies (Unverified , 03/10/12) Discharge Summary Date of Admission May 13, 2020 at 10:36 Date of Discharge Discharge Date: May 16, 2020 Discharge Time: 13:28 Admission Diagnosis Acute pancreatitis Discharge Diagnosis Acute pancreatitis (1) Acute pancreatitis Status: Acute Qualifiers: Qualified Codes: K85.90 - Acute pancreatitis without necrosis or infection, unspecified (2) GRACIELA (acute kidney injury) Status: Resolved Clinical Quality Measures DVT/VTE Risk/Contraindication: Risk Factor Score Per Nursin RFS Level Per Nursing on Admit: 2=Moderate KAN GUADARRAMA MD May 16, 2020 13:31
[2020-05-16 16:11] VITALS: BP 144/66
== END 2020-05-16 16:15 | disposition home or self-care (01) | DRG 439 ==
LOC: EDUNIT# 20:49 → ER 20:50 → 4TH 23:42 → OBSVTOIN 05-13 10:36
PROVIDERS: ADMIT Family Medicine; ATTEND Internal Medicine
DX: K85.90 Acute pancreatitis without necrosis or infection, unspecified (principal); N17.9 Acute kidney failure, unspecified; R63.0 Anorexia; E78.5 Hyperlipidemia, unspecified; Z87.891 Personal history of nicotine dependence; Z90.49 Acquired absence of other specified parts of digestive tract
CPT/HCPCS: 36415; 74177; 80048; 80053; 80061; 81000; 83690; 85007; 85025; 85027; 86141; 96361; 96374; 96375; G0378